=== PATIENT | male | born 1970 | race Caucasian/White ===

== ENCOUNTER 2022-10-28 18:10 | Observation (INO) | payer SELFPAY ==
[~2022-10-28] VITALS: Ht 182 cm; Wt 80.2 kg
[2022-10-28] MEDS ORDERED: HYDROmorphone 2 MG/ML VIAL (DILAUDID) IV ONE ×2 (18:30→20:30)
[2022-10-28] MEDS ORDERED: LIDOCAINE 1% INJ 20 ML VIAL INJ ONE (18:45)
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
[2022-10-28 19:02] LABS: BASOPHILS # (AUTO) 0.1 10^3/uL (0.0-0.1); BASOPHILS % (AUTO) 0 % (0-10); EOSINOPHILS # (AUTO) 0.1 10^3/uL (0.0-0.3); EOSINOPHILS % (AUTO) 0 % (0-10); HEMATOCRIT 42 % (40-54); HEMOGLOBIN 15.1 g/dL (13.3-17.7); LYMPHOCYTES # (AUTO) 3.8 10^3/uL (1.0-4.0); LYMPHOCYTES % (AUTO) 28 % (12-44); MEAN CORPUSCULAR HEMOGLOBIN 33 pg (25-34); MEAN CORPUSCULAR HGB CONC 36 g/dL (32-36); MEAN CORPUSCULAR VOLUME 92 fL (80-99); MEAN PLATELET VOLUME 11.1 fL (9.0-12.2); MONOCYTES # (AUTO) 0.9 10^3/uL (0.0-1.0); MONOCYTES % (AUTO) 7 % (0-12); NEUTROPHILS # (AUTO) 8.9 10^3/uL (1.8-7.8); NEUTROPHILS % (AUTO) 64 % (42-75); PLATELET COUNT 199 10^3/uL (130-400); WHITE BLOOD COUNT 13.7 10^3/uL (4.3-11.0)
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
[2022-10-28 19:17] LABS: ALBUMIN 3.9 GM/DL (3.2-4.5); POTASSIUM 3.1 MMOL/L (3.6-5.0)
[2022-10-28 19:18] LABS: CALCIUM 8.7 MG/DL (8.5-10.1)
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
[2022-10-28 19:19] LABS: TOTAL PROTEIN 6.7 GM/DL (6.4-8.2)
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
[2022-10-28 19:21] LABS: BILIRUBIN,TOTAL 0.8 MG/DL (0.1-1.0)
[2022-10-28 19:23] LABS: CREATININE SERUM 0.94 MG/DL (0.60-1.30)
[2022-10-28] MEDS ORDERED: KETAMINE 50 MG/5 ML SYRINGE IV ONE ×2 (20:00→21:15)
[2022-10-28] MEDS ORDERED: KETAMINE 50 MG/5 ML SYRINGE ONE (20:15)
[2022-10-28] MEDS ORDERED: HYDROmorphone 2 MG/ML VIAL (DILAUDID) ONE (20:15)
--- NOTE | 2022-10-28 21:41 | Diagnostic Imaging Report ---
INDICATION: Post reduction. COMPARISON: Earlier in the same day. FINDINGS: There has been significant interval improvement in the alignment of the patient's fibular fracture compared to the prior examination. A displaced medial malleolus fracture is present. The anterior to posterior relationships of the tibia and the talus are improved though the tibia does remain medially positioned relative to the talar dome. IMPRESSION: Complex ankle fracture and dislocation with significant interval improvement in ankle and fracture alignment status post closed reduction. Dictated by: Dictated on workstation # [id number]
[2022-10-28 22:15] VITALS: BP 137/75
[2022-10-28] MEDS: morphine INJ 4 MG/ML 1 ML (VIAL/SYRINGE) IVP PRN (22:25)
[2022-10-28 23:49] VITALS: BP 120/79
[2022-10-29] VITALS (8 sets, daily range): BP systolic 95–124; BP diastolic 60–79
[2022-10-29] MEDS: morphine INJ 4 MG/ML 1 ML (VIAL/SYRINGE) IVP PRN ×2 (00:15→03:24)
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
[2022-10-29 05:41] LABS: BASOPHILS % (AUTO) 0 % (0-10); EOSINOPHILS % (AUTO) 0 % (0-10); HEMATOCRIT 41 % (40-54); LYMPHOCYTES # (AUTO) 2.4 10^3/uL (1.0-4.0); LYMPHOCYTES % (AUTO) 17 % (12-44); MEAN CORPUSCULAR HEMOGLOBIN 33 pg (25-34); MEAN CORPUSCULAR HGB CONC 36 g/dL (32-36); MEAN CORPUSCULAR VOLUME 92 fL (80-99); MEAN PLATELET VOLUME 10.9 fL (9.0-12.2); MONOCYTES # (AUTO) 1.1 10^3/uL (0.0-1.0); MONOCYTES % (AUTO) 7 % (0-12); NEUTROPHILS # (AUTO) 10.6 10^3/uL (1.8-7.8); NEUTROPHILS % (AUTO) 75 % (42-75); PLATELET COUNT 175 10^3/uL (130-400); WHITE BLOOD COUNT 14.2 10^3/uL (4.3-11.0)
[2022-10-29 06:01] LABS: PROTHROMBIN TIME PATIENT 13.8 SEC (12.2-14.7)
[2022-10-29 06:10] LABS: ALBUMIN 3.8 GM/DL (3.2-4.5); BILIRUBIN,TOTAL 0.9 MG/DL (0.1-1.0); CALCIUM 8.4 MG/DL (8.5-10.1); CREATININE SERUM 0.78 MG/DL (0.60-1.30); POTASSIUM 3.7 MMOL/L (3.6-5.0); TOTAL PROTEIN 6.8 GM/DL (6.4-8.2)
[2022-10-29 06:17] LABS: LYMPHOCYTES % (MANUAL) 19 %; MONOCYTES % (MANUAL) 6 %; NEUTROPHILS % (MANUAL) 75 %; RBC MORPH NORMAL
[2022-10-29] MEDS ORDERED: BUPIVACAINE 0.5% 30 ML (SENSORCAINE) VIAL ONE ×2 (07:21→08:13)
--- NOTE | 2022-10-29 07:28 | Progress Note-Pre Operative ---
Pre-Operative Progress Note Date of Available H&P: October 28, 2022 Date H&P Reviewed: October 29, 2022 Time H&P Reviewed: 07:27 Changes from last HP none Pre-Operative Diagnosis: right ankle trimalleolar fracture with syndesmosis disruption CASS SIMMONS MD October 29, 2022 07:28
--- NOTE | 2022-10-29 07:29 | Progress Note-Post Operative ---
Post-Operative Progess Note Surgeon (s)/Furnace Reliner (s) Surgeon CASS SIMMONS MD Furnace Reliner: Serafin Ray Pre-Operative Diagnosis right ankle trimalleolar fracture with syndesmosis disruption Post-Operative Diagnosis right ankle trimalleolar fracture with syndesmosis disruption Procedure & Operative Findings Date of Procedure 10/29/22 Procedure Performed/Findings ORIF right medial, lateral and posterior malleolus and syndesmosis Anesthesia Type GETA Estimated Blood Loss Estimated blood loss (mL): minimal Specimens/Packing Specimens Removed none Packing: none CASS SIMMONS MD October 29, 2022 07:29
[2022-10-29] MEDS ORDERED: morphine INJ 4 MG/ML 1 ML (VIAL/SYRINGE) IVP PRN (07:30)
[2022-10-29] MEDS ORDERED: NALOXONE 0.4 MG/ML 1 ML (NARCAN) VIAL IV PRN (07:30)
[2022-10-29] MEDS ORDERED: OXYC1TAB11 PO (07:30)
[2022-10-29] MEDS ORDERED: oxyCODONE/APAP 5/325MG (PERCOCET 5) TABLET PO PRN (07:30)
[2022-10-29] MEDS ORDERED: ONDANSETRON 4 MG/2 ML (SDV) Z0FRAN IVP PRN (07:30)
[2022-10-29] MEDS: LACTATED RINGERS 1,000 ML IV PRN ×2 (07:34→08:32)
[2022-10-29] MEDS ORDERED: PROPOFOL INJECTION 50 ML IV ONE ×2 (07:42→09:27)
[2022-10-29] MEDS ORDERED: fentaNYL INJ 100 MCG/2 ML AMP ONE (07:43)
[2022-10-29] MEDS ORDERED: MIDAZOLAM 2 MG/2 ML (VERSED) VIAL ONE (07:43)
[2022-10-29] MEDS ORDERED: ceFAZolin INJECTION 2,000 MG in NS (IVPB) 50 ML IV ONE (07:45)
[2022-10-29] MEDS ORDERED: BUPIVACAINE 0.5% 30 ML (SENSORCAINE) VIAL INJ ONE (08:36)
--- NOTE | 2022-10-29 09:41 | Diagnostic Imaging Report ---
INDICATION: Right ankle fracture COMPARISON: 10/28/2022 TECHNIQUE: 6 intraoperative images of the right ankle are submitted dated 10/29/2022. FINDINGS: Intraoperative imaging demonstrates interval lateral plate and screw fixation of previously noted distal fibular fracture with alignment appearing improved. Additionally, interval placement of 2 screws transfixing previously noted medial malleolar fracture with alignment appearing improved and essentially anatomic. Syndesmotic banding is also noted. IMPRESSION: Intraoperative imaging from internal fixation of previously noted distal tibial and fibular fractures with alignment appearing improved. See surgical note for full details. Fluoroscopy time: 47.4 seconds, 16 images saved and reviewed, accumulative dose: 274.34 millirads. Dictated by: Dictated on workstation # [id number]
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
--- NOTE | 2022-10-30 07:59 | Anesthesia-Regional Post-Op ---
Regional Patient Condition Mental Status: Alert, Oriented x3 Circulation: Same as Pre-Op Headache: Absent Sensation: Full Recovery Motor Block: Absent Post Op Complications Complications None Follow Up Care/Instructions Patient Instructions None needed. Anesthesia/Patient Condition Patient is doing well, no complaints, stable vital signs, no apparent adverse anesthesia problems. No complications reported per nursing. LYN PAT CRNA October 30, 2022 07:59
== END 2022-10-29 13:27 | disposition home or self-care (01) ==
LOC: EDUNIT# 18:10 → ER 18:12 → 4TH 21:34
PROVIDERS: ADMIT Orthopaedic Surgery; ATTEND Orthopaedic Surgery
DX: S82.851A Displaced trimalleolar fracture of right lower leg, initial encounter for closed fracture (principal); S93.431A Sprain of tibiofibular ligament of right ankle, initial encounter; V23.49XA Other motorcycle driver injured in collision with car, pick-up truck or van in traffic accident, initial encounter; S82.891A Other fracture of right lower leg, initial encounter for closed fracture; S01.81XA Laceration without foreign body of other part of head, initial encounter; S61.412A Laceration without foreign body of left hand, initial encounter; Y93.55 Activity, bike riding; F17.210 Nicotine dependence, cigarettes, uncomplicated
CPT/HCPCS: 12002; 12011; 27840; 29515; 36415; 70450; 71045; 72131; 73610; 76000; 80053; 85007; 85025; 85027; 85610; 85730; 87081; 93041; 94760; 96375; 96376; 99291